=== PATIENT | female | born 1955 | race Caucasian/White ===

== ENCOUNTER 2017-02-24 06:38 | Day surgery (SDC) | payer BC ==
[~2017-02-24 06:38] MED LIST: Lactated Ringers 1,000 ML IV SCH
[2017-02-24] MEDS ORDERED: Propofol 200 MG/20 ML SDV ONE (07:12)
[2017-02-24] MEDS ORDERED: fentaNYL 100 MCG/2 ML SDV ONE (07:12)
[2017-02-24] MEDS ORDERED: Lidocaine 2% 5 ML SDV ONE (07:12)
[2017-02-24] MEDS ORDERED: Midazolam 1 MG/ML 2 ML SDV ONE (07:12)
--- NOTE | 2017-02-24 07:12 | PCM.PREANE ---
Preanesthetic Assessment - Anesthesia/Transfusion/Family Hx Anesthesia History: Prior Anesthesia Without Reaction Transfusion History: No Prior Transfusion(s) - Review of Systems General: No Symptoms Pulmonary: No Symptoms Cardiovascular: No Symptoms Gastrointestinal: No symptoms Neurological: No Symptoms Other: Reports: None - Physical Assessment O2 Sat by Pulse Oximetry: 98 Respiratory Rate: 16 Vital Signs: Last Vital Signs Temp 36.9 C 02/24/17 06:52 Pulse 60 02/24/17 06:52 Resp 16 02/24/17 06:52 BP 111/77 02/24/17 06:52 Pulse Ox 98 02/24/17 06:52 Height: 1.57 m Weight: 64.864 kg ASA Class: 2 Mental Status: Alert & Oriented x3 Airway Class: Mallampati = 2 Dentition: Reports: [place](s) (multiple upper front) Thyro-Mental Finger Breadths: 2 Mouth Opening Finger Breadths: 3 ROM/Head Extension: Full - Lab Values: Laboratory Last Values WBC 7.56 K/uL (4.0-11.0) 02/24/17 06:56 RBC 4.24 M/uL (4.30-5.90) L 02/24/17 06:56 Hgb 13.1 g/dL (12.0-16.0) 02/24/17 06:56 Hct 40.9 % (36.0-46.0) 02/24/17 06:56 MCV 96.5 fL (80.0-98.0) 02/24/17 06:56 MCH 30.9 pg (27.0-32.0) 02/24/17 06:56 MCHC 32.0 g/dL (31.0-37.0) 02/24/17 06:56 RDW Std Deviation 48.6 fl (28.0-62.0) 02/24/17 06:56 RDW Coeff of David 14 % (11.0-15.0) 02/24/17 06:56 Plt Count 237 K/uL (150-400) 02/24/17 06:56 MPV 10.70 fL (7.40-12.00) 02/24/17 06:56 Nucleated RBC % 0.0 /100WBC 02/24/17 06:56 Nucleated RBCs # 0 K/uL 02/24/17 06:56 - Allergies Allergies/Adverse Reactions: Allergies Allergy/AdvReac Type Severity Reaction Status Date / Time No Known Allergies Allergy Verified 02/20/17 17:13 - Blood Blood Available: No - Anesthesia Plan Pre-Op Medication Ordered: None - Acknowledgements Anesthesia Type Planned: MAC Pt an Appropriate Candidate for the Planned Anesthesia: Yes Alternatives and Risks of Anesthesia Discussed w Pt/Guardian: Yes Pt/Guardian Understands and Agrees with Anesthesia Plan: Yes PreAnesthesia Questionnaire HEENT History: Reports: Other (see below) (h/o dental abscess) Other HEENT History: wears glasses Cardiovascular History: Reports: None Respiratory History: Reports: None Gastrointestinal History: Reports: None Genitourinary History: Reports: Renal calculus ENGINEERING PROFESSOR History: Reports: Other (see below) (ASCUS) Musculoskeletal History: Reports: Arthritis, Fracture Other Musculoskeletal History: arthritis in hip, hx of fx right shoulder and elbow Neurological History: Reports: Other (see below) (occasional heahaches) Other Neuro History: hx of motion sickness Psychiatric History: Reports: None Endocrine/Metabolic History: Reports: None Hematologic History: Reports: None Immunologic History: Reports: None Oncologic (Cancer) History: Reports: Basal cell carcinoma, Squamous cell carcinoma Other Oncologic History: hx of basal cell removed from back and shoulder, hx of squamous cell removed from leg Dermatologic History: Reports: Other (see below) (h/o squamous cell carcinoma on leg and basal cell carcinoma on back) - Past Surgical History Head Surgeries/Procedures: Reports: None HEENT Surgical History: Reports: None Cardiovascular Surgical History: Reports: None Respiratory Surgical History: Reports: None GI Surgical History: Reports: Colonoscopy Female Surgical History: Reports: Kidney stone extraction Other Female Surgeries/Procedures: ureteroscopy with placement of double J stent Endocrine Surgical History: Reports: None Neurological Surgical History: Reports: None Musculoskeletal Surgical History: Reports: None Oncologic Surgical History: Reports: None Dermatological Surgical History: Reports: None - SUBSTANCE USE Smoking Status *Q: Never Smoker Recreational Drug Use History: No - HOME MEDS Home Medications: Home Meds Diclofenac Sodium [Voltaren] 50 mg PO BID 02/20/17 [History] Finasteride 0.2 mg PO ASDIRECTED 02/20/17 [History] Testosterone Pellet 1 dose IDERM ASDIRECTED 02/20/17 [History] - CURRENT (IN HOUSE) MEDS Current Meds: Current Medications Lactated Ringer's (Ringers, Lactated) 1,000 mls @ 125 mls/hr IV ASDIRECTED [facility] Last Admin: 02/24/17 06:53 Dose: 125 mls/hr
[2017-02-24] MEDS ORDERED: Lidocaine 1% with EPINEPHrine 1:100,000 20 ML MDV ONE (07:25)
[2017-02-24] MEDS ORDERED: Ketorolac 30 MG/ML SDV ONE (08:09)
[2017-02-24] MEDS ORDERED: Acetaminophen/Codeine 300-30 MG Tab PO PRN (08:27)
--- NOTE | 2017-02-24 08:37 | PCM.OPNOTE ---
[id number] procedure w/ Top hat. Endocervical currettage Findings: Cervix visualized but transformation zone was not visualized. Possible portion of transformation zone at 11oclock position noted endocervix; No lesions identified with placement of lugols solution. Pre Op Diagnosis: Pap with ASCUS can't rule out HSIL. Negative HRHPV. PEDRO 1. Pap-Colposcopy biopsy mismatch Post-Op Diagnosis: Same Anesthesia Technique: Local, MAC Primary Surgeon: Marine Mujica Pathology: Transformation zone of cervix and endocervix with ECC EBL in mLs: 0 Complications: None known Condition: Good Free Text/Narrative:: JobID#[id number]
[2017-02-24 08:54] VITALS: BP 102/57
--- NOTE | 2017-02-27 06:25 | OR ---
SURGEON: Marine Mujica DATE OF PROCEDURE: 02/24/2017 BRIEF PREOPERATIVE HISTORY: This is a 61-year-old P3, who on routine annual Pap smear had an ASCUS Pap with negative high-risk HPV initially. The following year as the patient was very concerned, the patient requested another Pap smear. The patient had a Pap smear that was ASCUS, cannot rule out high grade squamous intraepithelial lesion, also still with a negative high-risk HPV. Of note, the patient has no known history of high-grade Pap smear or any type of surgery on her cervix or uterus or any precancerous lesions. The patient subsequently underwent a colposcopy which was significant for unsatisfactory colposcopy as the entire transformation zone could not be seen secondary to the patient's postmenopausal status. The patient underwent and endocervical curettage and biopsy was significant for only PEDRO-1 with a clean endocervical curettage. Secondary to the possible Pap smear and colposcopy mismatch, the patient was consented for a LEEP. The patient was apprised of risks of surgery being bleeding, infection, poor wound healing, possible damage to bowel, bladder, ureters, nerves, blood vessels, or any other adjacent structures. Of note, also the risk of anesthesia and risk of thromboembolic disease from stasis. Knowing all of the above the patient did consent for a LEEP. PREOPERATIVE DIAGNOSES: 1. Pap smear with ASCUS cannot rule out high-grade squamous intraepithelial lesion or HSIL. 2. Negative high-risk HPV. 3. PEDRO-1 on colposcopy, Pap colposcopy biopsy mismatch. POSTOPERATIVE DIAGNOSES: 1. Pap smear with ASCUS cannot rule out high-grade squamous intraepithelial lesion or HSIL. 2. Negative high-risk HPV. 3. PEDRO-1 on colposcopy, Pap colposcopy biopsy mismatch. PROCEDURE PERFORMED: 1. Loop electrosurgical procedure with top-hat. 2. Endocervical curettage. ANESTHESIA: Local with MAC. ESTIMATED BLOOD LOSS: Zero. FINDINGS: Cervix was completely visualized. The transformation zone was not visualized. Possible portion of the transformation zone at 11 o'clock position noted in the endocervix. No lesions identified with Lugol's placement of solution on the cervix. COMPLICATIONS: None known. CONDITION: Postoperatively good. PATHOLOGY: The entire transformation zone of the cervix and the endocervix with ECC. DESCRIPTION OF PROCEDURE: The patient was met in preop holding and then transferred to the operating room. The patient was then transferred over bed. The patient, of note, managed airway conscious sedation. Of note, the patient did have Venodynes on and active prior. With the patient being transferred to operating room bed with Venodynes in place. The patient then underwent MAC anesthesia. The patient was then placed in the dorsal lithotomy position in the [facility]. The patient was then prepped and draped. A time-out was held to ensure appropriate patient, appropriate physician, and appropriate procedure. A coated speculum was then placed into the patient's vagina where the cervix was easily visualized. The cervix was then painted with Lugol's and as stated above, a complete transformation zone was not seen, but at approximately 11 o'clock position there was a possible portion of the endocervix. At this point, local anesthetic with epinephrine was injected at 12 o'clock, 4 o'clock, and 7 o'clock positions. Once the cervix was completely anesthetized, 20 x 10 mm loop was chosen for the LEEP. Starting at the 12 o'clock position and sweeping inferior the entire transformation zone of the cervix was removed with the loop. A smaller 5 mm x 5 mm LEEP loop was chosen for the top-hat procedure and again going from 12 o'clock to 6 o'clock position, the endocervix was removed. Initially, LEEP specimen was tagged at 12 o'clock position and sent to pathology. Afterwards, the surgical bed was inspected and hemostasis was excellent. The cautery ball was used on the edges of the cervix and the endocervix was thermally destroyed even more. After this an ECC was taken. Astringent was placed as a hemostatic agent to prevent any post surgery bleeding of the surgical bed. Afterwards, hemostasis was still noted to be excellent. All instruments were removed from the patient's vagina. The patient was cleansed. Drapes were taken down. The patient's legs were taken out of the stirru. The patient was eventually moved over to her postop bed and taken to recovery room in awake and stable condition. The sponge lap, needle, and instrument counts were correct. WYATT / MATTIE /[id number] BRENDA
== END 2017-02-24 09:15 | disposition home or self-care (01) ==
LOC: MW.SDS 06:38
PROVIDERS: ATTEND Obstetrics & Gynecology
PROC: 0UBC7ZZ Excision of Cervix, Via Natural or Artificial Opening (ICD-10-PCS; principal; 2017-02-24)
DX: N87.0 Mild cervical dysplasia (principal); M16.10 Unilateral primary osteoarthritis, unspecified hip; Z87.442 Personal history of urinary calculi; Z85.828 Personal history of other malignant neoplasm of skin; Z79.899 Other long term (current) drug therapy; Z98.890 Other specified postprocedural states
CPT/HCPCS: 36415; 57505; 57522; 85027; J1885; J2250; J3010; J7120; 00940; 88305; J2704

== ENCOUNTER 2022-07-20 13:22 | Emergency (ER) | payer BC ==
[2022-07-20] MEDS ORDERED: Lidocaine/Epineph/Tetracaine 3 ML Syringe TOP ONE (13:28)
[2022-07-20] MEDS ORDERED: Cephalexin 500 MG Cap PO ONE (13:30)
[2022-07-20] MEDS ORDERED: Acetaminophen 325 MG Tab PO ONE (13:30)
[2022-07-20] MEDS ORDERED: Ibuprofen 400 MG Tab PO ONE (13:30)
[2022-07-20] MEDS ORDERED: Lidocaine 1% PF 2 ML SDV INJECT ONE (13:59)
[2022-07-20] MEDS ORDERED: Diphtheria,Pertussis(Acell),Tetanus Vaccine 0.5 ML Syringe IM ONE (14:47)
[2022-07-20] MEDS ORDERED: Bacitracin Oint 28.35 GM Tube TOP STA (15:50)
[2022-07-20] MEDS ORDERED: Bacitracin Oint 28.35 GM Tube TOP SCH (22:00)
[2022-07-22 17:25] VITALS: BP 112/82; PULSE 73
== END 2022-07-20 16:05 | disposition home or self-care (01) ==
LOC: MW.ED 13:22
DX: S61.312A Laceration without foreign body of right middle finger with damage to nail, initial encounter (principal); Z23 Encounter for immunization; W26.8XXA Contact with other sharp object(s), not elsewhere classified, initial encounter
CPT/HCPCS: 12002; 90471; 90715; 99282; A9270

== ENCOUNTER 2025-03-01 08:28 | Day surgery (SDC) | payer MEDICARE, BC ==
[~2025-03-01 08:28] MED LIST changes: -Lactated Ringers 1,000 ML IV SCH; +Sodium Chloride 0.9% 10 ML Syringe FLUSH PRN; +Sodium Chloride 0.9% 2.5 ML Syringe FLUSH PRN; +Sodium Chloride 0.9% 20 ML SDV IV PRN
[2025-03-01] MEDS: Lactated Ringers 1,000 ML IV SCH (08:58)
[2025-03-01] MEDS ORDERED: propofoL 500 MG/50 ML 50 ML ONE (09:41)
[2025-03-01 13:10] VITALS: BP 93/62; PULSE 64
== END 2025-03-01 11:18 | disposition home or self-care (01) ==
LOC: MW.SDS 08:28
PROVIDERS: ATTEND Surgery
DX: Z12.11 Encounter for screening for malignant neoplasm of colon (principal); K57.30 Diverticulosis of large intestine without perforation or abscess without bleeding; E78.00 Pure hypercholesterolemia, unspecified; Z79.899 Other long term (current) drug therapy
CPT/HCPCS: G0121; J2704; J7120; 00812

== ENCOUNTER 2025-03-10 07:35 | Emergency (ER) | payer MEDICARE, BC ==
[2025-03-10 08:51] VITALS: BP 106/71; PULSE 76
== END 2025-03-10 08:50 | disposition home or self-care (01) ==
LOC: MW.ED 07:35
DX: H34.231 Retinal artery branch occlusion, right eye (principal)
CPT/HCPCS: 99282; 99283